=== PATIENT | male | born 1975 ===

== ENCOUNTER 2018-05-11 16:00 | Outpatient (CLI) | payer OTHER | END 2018-05-11 16:01 | disposition home or self-care (01) | LOC: SLEEPLAB 16:00 | PROVIDERS: ATTEND Internal Medicine | DX: G47.33 Obstructive sleep apnea (adult) (pediatric) (principal); R40.0 Somnolence; K21.9 Gastro-esophageal reflux disease without esophagitis; R06.83 Snoring; Z68.25 Body mass index [BMI] 25.0-25.9, adult | CPT/HCPCS: 95806 ==